=== PATIENT | female | born 1960 | race Caucasian/White ===

== ENCOUNTER 2024-05-13 19:46 | Emergency (ER) | payer OTHER ==
[~2024-05-13] VITALS: Ht 157.5 cm; Wt 95.0 kg
[~2024-05-13 19:46] MED LIST: CYCLOBENZAPRINE10 MG PO; FAMOTIDINE20 M1 PO; HYDROCHLOROT25 MG PO; LEVOTHYROXIN75 MCG PO; OMEPRAZOLE DR40 MG PO; PREVACID15 M2 PO; SUCRALFATE1 GM PO; lovastatin PO; meloxicam PO
[2024-05-13 20:19] VITALS: BP 132/75
[2024-05-13] MEDS ORDERED: METOPROLOL TART50 MG PO (20:24)
[2024-05-13] MEDS ORDERED: LEVOTHYROXIN88 MC1 PO (20:25)
[2024-05-13] MEDS ORDERED: LOVASTATIN20 M1 PO (20:26)
[2024-05-13] MEDS ORDERED: MELOXICAM15 MG PO (20:26)
[2024-05-13] MEDS ORDERED: ASPIRINCHW 81MG PO (20:27)
[2024-05-13] MEDS ORDERED: ASPERCREME LIDOCA41 (20:27)
[2024-05-13 20:30] VITALS: BP 138/78
[2024-05-13] MEDS ORDERED: ACETAMINOPHEN 500 MG TAB PO ONE (20:30)
[2024-05-13] MEDS ORDERED: DICLOFENAC SODIUM 75 MG/TAB PO ONE (20:30)
[2024-05-13] MEDS ORDERED: GABAPENTIN300 M2 PO (20:33)
[2024-05-13 22:09] VITALS: BP 138/78
== END 2024-05-13 22:09 | disposition home or self-care (01) | DRG 563 ==
LOC: ED 19:46
DX: S39.012A Strain of muscle, fascia and tendon of lower back, initial encounter (principal); S80.02XA Contusion of left knee, initial encounter; I10 Essential (primary) hypertension; E03.9 Hypothyroidism, unspecified; E78.5 Hyperlipidemia, unspecified; V59.40XA Driver of pick-up truck or van injured in collision with unspecified motor vehicles in traffic accident, initial encounter